=== PATIENT | male | born 1950 | race Hispanic/Latino ===

== ENCOUNTER → 2017-06-11 | Day surgery (SDC) | payer MEDICARE, OTHER ==
[2017-06-09 15:20] LABS: BASOPHILS % 0.5 % (0.0-1.0); EOSINOPHILS # (AUTO) 0.1 (0.0-0.4); EOSINOPHILS % 2.4 % (0.0-6.0); HEMATOCRIT 39.5 % (38.2-49.6); HEMOGLOBIN 13.1 g/dL (14.0-18.0); LYMPHOCYTES # (AUTO) 0.9 (1.0-3.2); LYMPHOCYTES % 20.8 % (18.0-39.1); MEAN CORPUSCULAR HEMOGLOBIN 29.4 pg (28-32); MEAN CORPUSCULAR HGB CONC 33.2 g/dL (31-35); MEAN CORPUSCULAR VOLUME 88.6 fL (81-99); MONOCYTES # (AUTO) 0.3 (0.2-0.8); MONOCYTES % 7.8 % (4.4-11.3); NEUTROPHILS # (AUTO) 2.9 (2.1-6.9); NEUTROPHILS % 68.3 % (38.7-80.0); PLATELET COUNT 63 x10e3/uL (140-360); RED BLOOD COUNT 4.46 x10e6/uL (4.3-5.7); RED CELL DISTRIBUTION WIDTH 15.7 % (11.7-14.4)
[~2017-06-11] MED LIST: AMLODIPINE-BEN1 EAC4 PO; CRESTOR20 MG PO; FENTANYL CITRATE/PF 100MCG/2 ML INJ ONE; LABETALOL HCL100 MG PO; LIDOCAINE HCL 2% LOCAL INJ 5 ML SDV VIAL INJ ONE; METOCLOPRAMIDE10 MG PO; PANTOPRAZOLE SO40 MG PO; PIOGLITAZONE15 MG PO; PROPOFOL IV EMULSION 10 MG/ML 50 ML VIAL ONE; XIGDUO PO
--- OUTSIDE RECORDS SUMMARY | 2017-06-11 06:03 | XMS REPORT | Clinical Summary ---
Author Author [facility] Organization [facility] Address Unknown Phone Unavailable Care Team Providers Care Dairy Manager Name Role Phone Carmella Wing MD PCP Allergies Active Allergy Reactions Severity Noted Date Comments Adhesive Tape-Silicones 08/28/2015 Iodine And Iodide Other (See Comments) 08/28/2016 Stopped breathing Containing Products Patient unsure of allergy to iodine but stated he stopped breathing when they gave him iodine for another test Latex 08/28/2015 Current Medications Prescription Sig. Disp. Refills Start End Date Status Date potassium chloride TK 1 C PO QD 1 01/06/20 Active (MICRO-K) 10 MEQ CR 16 capsule VASCEPA 1 gram capsule Take 2 capsules by mouth 01/27/20 Active 2 (two) times a day. 16 fenofibrate (LOFIBRA) 160 TK 1 T PO QD 1 01/06/20 Active MG tablet 16 amlodipine-benazepril TK 1 C PO QD 1 01/10/20 Active (LOTREL) 5-40 mg per 16 capsule BYSTOLIC 20 mg tablet TK 1 T PO QD 1 01/10/20 Active 16 rosuvastatin (CRESTOR) 20 TK 1 T PO QD 1 01/01/20 Active MG tablet 16 ONETOUCH ULTRA TEST strip TEST BID AC 3 11/08/19 Active test strips 16 TRULICITY 1.5 mg/0.5 mL 01/26/20 Active pen injector 16 desoximetasone (TOPICORT) JUANIS EXT AA TID PRN 1 01/02/20 Active 0.25 % cream 16 ferrous fumarate-vitamin Take 1 tablet by mouth Active C (DIXIE-SEQUELS, daily. IRON-VIT C,) 200 mg (65 mg iron)-25 mg tablet extended release ER tablet vitamin E 1000 UNIT Take 400 Units by mouth Active capsule daily. cholecalciferol, vitamin Take 2,000 Units by mouth Active D3, (VITAMIN D3) 2,000 daily. unit capsule capsule omeprazole (PriLOSEC) 20 Take 20 mg by mouth Active MG capsule daily. metFORMIN (GLUCOPHAGE) Take 1,000 mg by mouth 2 Active 1,000 mg tablet (two) times a day with meals. pantoprazole (PROTONIX) TK 1 T PO QD 1 01/19/20 08/12/19 Discontin 40 MG EC tablet 16 17 ued INVOKAMET 150-1,000 mg TK 1 T PO BID 1 01/06/20 08/12/19 Discontin tablet 16 17 ued cholecalciferol, vitamin Take 1,000 Units by mouth 08/12/19 Discontin D3, (VITAMIN D3) 1,000 daily. 17 ued unit tablet dapagliflozin-metformin Take 1 tablet by mouth 2 08/29/19 Discontin (XIGDUO XR) 5-1,000 mg (two) times a day. 17 ued tablet, IR & ER, biphasic 24hr Active Problems Problem Noted Date HTN (hypertension) 08/11/2016 DM (diabetes mellitus screen) 08/11/2016 HLD (hyperlipidemia) 08/11/2016 Liver lesion 08/11/2016 Portal hypertension 01/31/2016 Cirrhosis of liver without ascites 01/31/2016 Dyspepsia 01/31/2016 Encounters Date Type Specialty Care Team Description 02/10/2017 Office Visit Hepatology Donnie Pulido MD Cirrhosis of liver without ascites, unspecified hepatic cirrhosis type (Primary Dx); Portal hypertension; Metabolic syndrome; Abnormal liver enzymes 08/28/2016 Hospital Radiology Donnie Pulido MD Portal hypertension ; Encounter Cirrhosis of liver without ascites, unspecified hepatic cirrhosis type; Dyspepsia; DM (diabetes mellitus screen); Hepatic cirrhosis, unspecified hepatic cirrhosis type; Liver lesion 08/28/2016 Orders Only Hepatology Deepa Wilhelm LVN Hepatic cirrhosis, unspecified hepatic cirrhosis type (Primary Dx); Liver lesion 08/11/2016 Office Visit Hepatology Leonel Astudillo MD Portal hypertension Mayr Scott PAC (Primary Dx); Cirrhosis of liver without ascites, unspecified hepatic cirrhosis type; Dyspepsia; DM (diabetes mellitus screen) 08/10/2016 Orders Only Hepatology Blaine Tang Jr., MD after 06/10/2016 Family History Medical History Relation Name Comments Diabetes Brother Diabetes Father Prostate cancer Father 2000 Diabetes Mother Pancreatic cancer Mother 1994 Relation Name Status Comments Brother Father Mother Social History Tobacco Use Types Packs/Day Years Used Date Former Smoker Alcohol Use Drinks/Week oz/Week Comments Yes Sex Assigned at Date Recorded Not on file Last Filed Vital Signs Vital Sign Reading Time Taken Blood Pressure 141/77 02/10/2017 11:43 AM [facility]UST[facility] Pulse 82 02/10/2017 11:43 AM HEAD CUSTOD[facility] Temperature 36.7 C (98 F) 02/10/2017 11:43 AM HEAD CUSTODIAN Respiratory Rate 18 08/11/2016 9:58 AM CDT Oxygen Saturation 96% 02/10/2017 11:43 AM HEAD CUSTODIAN Inhaled Oxygen - - Concentration Weight 86.2 kg (190 lb) 02/10/2017 11:43 AM HEAD CUSTODIAN Height 165.1 cm (5' 5") 02/10/2017 11:43 AM HEAD CUSTODIAN Body Mass Index 31.62 02/10/2017 11:43 AM HEAD CUSTODIAN Plan of Treatment Date Type Specialty Care Team Description 08/11/2017 Office Visit Hepatology Health Maintenance Due Date Last Done Comments COLONOSCOPY 07/21/2001 ZOSTER VACCINE 2011 PNEUMOCOCCAL 07/21/2016 POLYSACCHARIDE VACCINE AGE 65 AND OVER PNEUMOCOCCAL-13 07/21/2016 INFLUENZA VACCINE 09/22/2017 Results * Alpha fetoprotein (01/26/2017 8:56 AM) Only the most recent of 2 results within the time period is included. Component Value Ref Range Alpha fetoprotein 2.7Comment: Julisa ECLIA methodology 0.0 - 8.3 ng/mL Specimen Performing Laboratory Blood [facility] Narrative Performed at:[address] [place], [place] [id number] Disbursing Officer: Salomón Muse MD, Phone:[phone] * Prothrombin time with INR (01/26/2017 8:56 AM) Only the most recent of 2 results within the time period is included. Component Value Ref Range INR 1.4 (H) 0.8 - 1.2 Comment: Reference interval is for non-anticoagulated patients. Suggested INR therapeutic range for Vitamin K antagonist therapy: Standard Dose (moderate intensity therapeutic range): 2.0 - 3.0 Higher intensity therapeutic range 2.5 - 3.5 Prothrombin time 14.1 (H) 9.1 - 12.0 sec Specimen Performing Laboratory Blood [facility] Narrative Performed at:[address] [place], [place] [id number] Disbursing Officer: Salomón Muse MD, Phone:[phone] * CBC with platelet and differential (01/26/2017 8:56 AM) Only the most recent of 2 results within the time period is included. Component Value Ref Range WBC 4.0 3.4 - 10.8 x10E3/uL RBC 4.26 4.14 - 5.80 x10E6/uL HGB 13.0Comment: Please note reference 13.0 - 17.7 g/dL interval change HCT 38.5 37.5 - 51.0 % MCV 90 79 - 97 fL MCH 30.5 26.6 - 33.0 pg MCHC 33.8 31.5 - 35.7 g/dL RDW 14.4 12.3 - 15.4 % Platelet count 73 (LL)Comment: Platelet count verified by 150 - 379 x10E3/ uL examination of peripheral blood smear. Neutrophils 66 Not Estab. % Lymphocytes 19 Not Estab. % Monocytes 10 Not Estab. % Eosinophils 4 Not Estab. % Basophils 0 Not Estab. % Neutrophils, absolute 2.7 1.4 - 7.0 x10E3/uL Lymphocytes, absolute 0.8 0.7 - 3.1 x10E3/uL Monocytes, absolute 0.4 0.1 - 0.9 x10E3/uL Eosinophils, absolute 0.2 0.0 - 0.4 x10E3/uL Basophils, absolute 0.0 0.0 - 0.2 x10E3/uL Immature granulocytes 1 Not Estab. % Immature grans (abs) 0.0 0.0 - 0.1 x10E3/uL Hematology comments: Note:Comment: Verified by microscopic examination. Specimen Performing Laboratory Blood [facility] Narrative Performed at: - [id number] Disbursing Officer: Salomón Muse MD, Phone:[phone] * Comprehensive metabolic panel (01/26/2017 8:56 AM) Only the most recent of 2 results within the time period is included. Component Value Ref Range Glucose 130 (H) 65 - 99 mg/dL BUN, whole blood 13 8 - 27 mg/dL Creatinine 0.56 (L) 0.76 - 1.27 mg/dL EGFR Non-Afr. Cameroonian 109 >59 mL/min/1.73 EGFR 125 >59 mL/min/1.73 BUN/creatinine ratio 23 10 - 24 Sodium 140 134 - 144 mmol/L Potassium 4.3 3.5 - 5.2 mmol/L Chloride 101 96 - 106 mmol/L CO2 22 18 - 29 mmol/L Calcium 9.8 8.6 - 10.2 mg/dL Protein 7.8 6.0 - 8.5 g/dL Albumin, S 4.9 (H) 3.6 - 4.8 g/dL Globulin, total 2.9 1.5 - 4.5 g/dL Albumin/globulin ratio 1.7 1.2 - 2.2 Total bilirubin 0.5 0.0 - 1.2 mg/dL Alkaline phosphatase 65 39 - 117 IU/L AST 44 (H) 0 - 40 IU/L ALT 26 0 - 44 IU/L Specimen Performing Laboratory Blood [facility] Narrative Performed at:01 - [facility] [id number] Disbursing Officer: Salomón Muse MD, Phone:[phone] * CT Abdomen Wo Contrast (08/28/2016 1:06 PM) Specimen Performing Laboratory [facility] [address] [place] [address] Narrative EXAMINATION:CT ABDOMEN WO CONTRAST CLINICAL HISTORY:K74.60 Unspecified cirrhosis of liver, K76.9 Liver disease unspecified, cirrhosisliver [facility] screening. TECHNIQUE: Multiple axial images of the abdomen were obtained without intravenous contrast. Sagittal and coronal computerized reformatted images were also obtained. The lack of intravenous contrast reduces the sensitivity of detecting solid organ disease. CT scans are performed using radiation dose reduction techniques. Technical factors are evaluated and adjusted to ensure appropriate moderation of exposure. Automated dose management technology is applied to adjust radiation exposure while achieving a diagnostic quality image. COMPARISON:None. IMPRESSION: 1.The liver is cirrhotic. Evaluation for masses is limited in the absence of intravenous contrast. There is a tiny hypodensity in the dome of the liver, nonspecific. 2.Spleen is enlarged, compatible with portal hypertension. There is trace ascites in the right perihepatic space/paracolic gutter. 3.There is cholelithiasis without evidence of acute cholecystitis. There is no biliary dilatation. 4.Pancreas and adrenals are normal in unenhanced appearance. There are bilateral parapelvic renal cysts, as well as a 4.3 cm right cortical renal cyst and 4 mm nonobstructive right lower pole kidney stone. 5.Imaged bowel is nonobstructed. 6.There is no regional adenopathy. The abdominal aorta is normal in caliber. No suspicious osseous lesions are seen. [facility]-[id number] Procedure Note Hm Interface, Radiology Results Incoming - 08/28/2016 3:10 PM CDT EXAMINATION: CT ABDOMEN WO CONTRAST CLINICAL HISTORY: K74.60 Unspecified cirrhosis of liver, K76.9 Liver disease unspecified, cirrhosis liver lesion HCC screening. TECHNIQUE: Multiple axial images of the abdomen were obtained without intravenous contrast. Sagittal and coronal computerized reformatted images were also obtained. The lack of intravenous contrast reduces the sensitivity of detecting solid organ disease. CT scans are performed using radiation dose reduction techniques. Technical factors are evaluated and adjusted to ensure appropriate moderation of exposure. Automated dose management technology is applied to adjust radiation exposure while achieving a diagnostic quality image. COMPARISON: None. IMPRESSION: 1. The liver is cirrhotic. Evaluation for masses is limited in the absence of intravenous contrast. There is a tiny hypodensity in the dome of the liver, nonspecific. 2. Spleen is enlarged, compatible with portal hypertension. There is trace ascites in the right perihepatic space/paracolic gutter. 3. There is cholelithiasis without evidence of acute cholecystitis. There is no biliary dilatation. 4. Pancreas and adrenals are normal in unenhanced appearance. There are bilateral parapelvic renal cysts, as well as a 4.3 cm right cortical renal cyst and 4 mm nonobstructive right lower pole kidney stone. 5. Imaged bowel is nonobstructed. 6. There is no regional adenopathy. The abdominal aorta is normal in caliber. No suspicious osseous lesions are seen. [facility]-[id number] * Helicobacter pylori antigen, stool (07/23/2016 3:35 PM) Component Value Ref Range H pylori Ag, stool Negative Negative Specimen Performing Laboratory Stool [facility] Narrative Performed at: - [id number] Disbursing Officer: Rey East MD, Phone:[phone] * Vitamin D 25 hydroxy level (2016 11:36 AM) Component Value Ref Range Vitamin D, 25-hydroxy 37.2 30.0 - 100.0 ng/mL Comment: Vitamin D deficiency has been defined by the [place] [employer] and an Endocrine Society practice guideline as a level of serum 25-OH vitamin D less than 20 ng/mL (1,2). The Endocrine Society went on to further define vitamin D insufficiency as a level between 21 and 29 ng/mL (2). 1. IOM ([place] of [employer]). 2010. Dietary reference intakes for calcium and D. Eduardo [place]: The National Academies Press. 2. Alfredo MF, Yash NC, Anna MANSFIELD, et al. Evaluation, treatment, and prevention of vitamin D deficiency: an Endocrine Society clinical practice guideline. JCEM. 2010; 96(7):1911-30. Specimen Performing Laboratory Blood [facility] Narrative Performed at:[id number] Disbursing Officer: Salomón Muse MD, Phone:[phone] * Hemoglobin A1c (2016 11:36 AM) Component Value Ref Range Hemoglobin A1C 6.5 (H) 4.8 - 5.6 % Comment: Pre-diabetes: 5.7 - 6.4 Diabetes: >6.4 Glycemic control for adults with diabetes: <7.0 Specimen Performing Laboratory Blood [facility] Narrative Performed at:[id number] Disbursing Officer: Salomón Muse MD, Phone:[phone] after 06/10/2016 Insurance Payer Benefit Subscriber ID Type Phone Address Plan / Group MEDICARE MEDICARE xxxxxxxxxx Medicare [place], [place] PART A AND B MISC MEDICARE REPLACEMENT MISC xxxxxxxxxx [place] [address]
== END | disposition home or self-care (01) ==
LOC: OR 06:01
PROVIDERS: ATTEND Internal Medicine Gastroenterology
DX: K74.69 Other cirrhosis of liver (principal); K29.70 Gastritis, unspecified, without bleeding; I85.10 Secondary esophageal varices without bleeding; K21.9 Gastro-esophageal reflux disease without esophagitis; K76.6 Portal hypertension; D64.9 Anemia, unspecified; E66.9 Obesity, unspecified; E11.9 Type 2 diabetes mellitus without complications; I10 Essential (primary) hypertension; E78.5 Hyperlipidemia, unspecified; M19.90 Unspecified osteoarthritis, unspecified site; Z01.810 Encounter for preprocedural cardiovascular examination; Z01.812 Encounter for preprocedural laboratory examination; Z68.30 Body mass index [BMI] 30.0-30.9, adult; Z96.659 Presence of unspecified artificial knee joint; Z80.0 Family history of malignant neoplasm of digestive organs
CPT/HCPCS: 36415 ×2; 43235; 82948; 85025; 93005; J2001; 43239

== ENCOUNTER → 2020-08-22 | Day surgery (SDC) | payer MEDICARE, OTHER ==
[~2020-08-22] MED LIST changes: -FENTANYL CITRATE/PF 100MCG/2 ML INJ ONE; -LIDOCAINE HCL 2% LOCAL INJ 5 ML SDV VIAL INJ ONE; -PROPOFOL IV EMULSION 10 MG/ML 50 ML VIAL ONE
[2020-08-22 10:53] LABS: BASOPHILS % 0.4 % (0.0-1.0); EOSINOPHILS # (AUTO) 0.1 (0.0-0.4); EOSINOPHILS % 2.6 % (0.0-6.0); HEMATOCRIT 37.9 % (38.2-49.6); HEMOGLOBIN 12.4 g/dL (14.0-18.0); LYMPHOCYTES # (AUTO) 0.7 (1.0-3.2); LYMPHOCYTES % 15.2 % (18.0-39.1); MEAN CORPUSCULAR HEMOGLOBIN 29.7 pg (28-32); MEAN CORPUSCULAR HGB CONC 32.7 g/dL (31-35); MEAN CORPUSCULAR VOLUME 90.7 fL (81-99); MONOCYTES # (AUTO) 0.5 (0.2-0.8); MONOCYTES % 10.6 % (4.4-11.3); NEUTROPHILS # (AUTO) 3.2 (2.1-6.9); PLATELET COUNT 52 x10e3/uL (140-360); RED BLOOD COUNT 4.18 x10e6/uL (4.3-5.7); RED CELL DISTRIBUTION WIDTH 15.6 % (11.7-14.4)
[2020-08-22 13:25] VITALS: BP 124/70
== END | disposition home or self-care (01) ==
LOC: ENDO 09:46
PROVIDERS: ATTEND Internal Medicine Gastroenterology
DX: K74.69 Other cirrhosis of liver (principal); I85.10 Secondary esophageal varices without bleeding; K29.30 Chronic superficial gastritis without bleeding; K76.6 Portal hypertension; K21.9 Gastro-esophageal reflux disease without esophagitis; Z71.3 Dietary counseling and surveillance; E11.9 Type 2 diabetes mellitus without complications; I10 Essential (primary) hypertension; E66.9 Obesity, unspecified; Z20.822 Contact with and (suspected) exposure to COVID-19; E78.5 Hyperlipidemia, unspecified; Z68.30 Body mass index [BMI] 30.0-30.9, adult; Z86.16 Personal history of COVID-19
CPT/HCPCS: 36415; 43235; 82948; 85025; 93005; U0002